=== PATIENT | male | born 1985 | race Hispanic/Latino ===

== ENCOUNTER 2017-04-29 10:22 | Emergency (ER) | payer OTHER ==
[2017-04-29 11:09] VITALS: RESP 16; TEMP 97; BMI 30.2
--- NOTE | 2017-04-29 11:18 | ED PDOC ---
Arrival/HPI - General Chief Complaint: Abdominal Pain Time Seen by Provider: 04/29/17 11:11 Historian: Patient - History of Present Illness Narrative History of Present Illness (Text): 04/29/17 11:15 31 year old male who denies significant past medical history presents to the emergency department with five episodes of non-bloody diarrhea and some lower abdominal cramping since yesterday. Patient states he gets similar symptoms about once a year. He states he was at a picnic yesterday and someone else had the same symptoms. He reports he took Tums and Maalox with mild improvement. Denies vomiting or fever. PMD: Dr. Linares Time/Duration: 24 hours Symptom Onset: Sudden Symptom Course: Unchanged Associated Symptoms (Text): None Past Medical History - Provider Review Nursing Documentation Reviewed: Yes - Past History Past History: Non-Contributing - Infectious Disease Hx of Infectious Diseases: None - Tetanus Immunization Tetanus Immunization: Up to Date - Past Medical History Past Medical History: No Previous - Pulmonary Hx Asthma: No - Hematological/Oncological Hx Anemia: No Hx Cancer: No - Musculoskeletal/Rheumatological Hx Falls: No - Psychiatric Hx Psychophysiologic Disorder: No Hx Depression: No Hx Emotional Abuse: No Hx Physical Abuse: No Hx Substance Use: No - Past Surgical History Past Surgical History: No Previous - Surgical History Hx Orthopedic Surgery: Yes (R 4TH FINGER) - Anesthesia Hx Anesthesia: No Hx Anesthesia Reactions: No Hx Malignant Hyperthermia: No - Suicidal Assessment Feels Threatened In Home Enviroment: Yes Family/Social History - Physician Review Nursing Documentation Reviewed: Yes Family/Social History: Unknown Family HX Smoking Status: Never Smoked Hx Alcohol Use: No Hx Substance Use: No Hx Substance Use Treatment: No Allergies/Home Meds Allergies/Adverse Reactions: Allergies famotidine [From Pepcid] Allergy (Verified 12/19/16 13:12) ANAPHYLAXIS Penicillins Allergy (Verified 12/19/16 13:12) ANAPHYLAXIS Home Medications: Home Meds Medication Instructions Recorded Confirmed No Known Home Med 04/29/17 04/29/17 Review of Systems - Physician Review All systems were reviewed & negative as marked: Yes - Review of Systems Constitutional: absent: Fevers Gastrointestinal: Abdominal Pain (Lower, cramping), Diarrhea. absent: Vomiting Physical Exam Vital Signs Reviewed: Yes Vital Signs Temp Pulse Resp BP Pulse Ox 04/29/17 11:21 86 16 128/75 99 04/29/17 11:07 97.0 F L 88 16 129/77 98 Temperature: Afebrile Blood Pressure: Normal Pulse: Regular Respiratory Rate: Normal Appearance: Positive for: Well-Appearing, Non-Toxic Pain Distress: None Mental Status: Positive for: Alert and Oriented X 3 - Systems Exam Head: Present: Atraumatic, Normocephalic Pupils: Present: PERRL Extroacular Muscles: Present: EOMI Conjunctiva: Present: Normal Mouth: Present: Moist Mucous Membranes Neck: Present: Normal Range of Motion Respiratory/Chest: Present: Clear to Auscultation, Good Air Exchange. No: Respiratory Distress, Accessory Muscle Use Cardiovascular: Present: Regular Rate and Rhythm, Normal S1, S2. No: Murmurs Abdomen: Present: Normal Bowel Sounds. No: Tenderness, Distention, Peritoneal Signs Back: Present: Normal Inspection Upper Extremity: Present: Normal Inspection. No: Cyanosis, Edema Lower Extremity: Present: Normal Inspection. No: Edema Neurological: Present: GCS=15, CN II-XII Intact, Speech Normal Skin: Present: Warm, Dry, Normal Color. No: Rashes Psychiatric: Present: Alert, Oriented x 3, Normal Insight, Normal Concentration Medical Decision Making ED Course and Treatment: Impression: 31 year old male who denies significant past medical history presents to the emergency department with five episodes of non-bloody diarrhea and some lower abdominal cramping since yesterday. Differential Diagnosis included but are not limited to: Gastroeneterisis Plan: -- Discharge Prior Visits: Notes and results from previous visits were reviewed. Patient last seen in the ED on 12/19/16 for vomiting and discharged home. Progress Notes: 04/29/17 11:22 Patient's abdomen is non-tender. Vitals stable. Instructed patient to stay well hydrated. Will discharge patient to follow up with PMD or return if symptoms worsen. Patient agrees with plan. - Scribe Statement The provider has reviewed the documentation as recorded by the Bud Jung Provider Scribe Attestation: All medical record entries made by the Scribyenifer were at my direction and personally dictated by me. I have reviewed the chart and agree that the record accurately reflects my personal performance of the history, physical exam, medical decision making, and the department course for this patient. I have also personally directed, reviewed, and agree with the discharge instructions and disposition. Disposition/Present on Arrival - Present on Arrival Any Indicators Present on Arrival: No History of DVT/PE: No History of Uncontrolled Diabetes: No Urinary Catheter: No History of Decub. Ulcer: No History Surgical Site Infection Following: None - Disposition Have Diagnosis and Disposition been Completed?: Yes Diagnosis: Abdominal pain, Gastroenteritis Disposition: HOME/ ROUTINE Disposition Time: 11:22 Patient Plan: Discharge Condition: STABLE Discharge Instructions (ExitCare): Gastroenteritis (ED) Additional Instructions: Mr Joseph, thank you for letting us take care of you today. Your provider was Dr. Rivera. You were treated for Gastroenteritis, Abdominal Pain. The emergency medical care you received today was directed at your acute symptoms. If you were prescribed any medication, please fill it and take as directed. It may take several days for your symptoms to resolve. Return to the Emergency Department if your symptoms worsen, do not improve, or if you have any other problems. Please contact your doctor or call one of the physicians/clinics you have been referred to that are listed on the Patient Visit Information form that is included in your discharge packet. Bring any paperwork you were given at discharge with you along with any medications you are taking to your follow up visit. Our treatment cannot replace ongoing medical care by a primary care provider (PCP) outside of the emergency department. Thank you for allowing the [facility] team to be part of your care today. If you had an X-Ray or CT scan: A Radiologist will review the ED reading if any change in treatment is needed we will contact you. If you had a blood, urine, or wound culture: It will take several days for the results, if any change in treatment is needed we will contact you. If you had an STI test: It will take 48 hours for the results. Please call after 1 week if you have not heard back. [facility] Employee Regarding your Work Related Injury, you are instructed to do all of the following by next day: 1. Notify [facility] Employee Health Department of the sustained injury and arrange for any follow-up appointments if needed during the next business day. If the office is closed or no answer is received, please leave a detailed voice message. Message should include your full name, department and research & analytics manager, date of injury, date of ED visit if applicable. Employee Health can be reached at [phone]. 2. If there is time lost, notify [facility] Human Resources Department of the work related injury the next business day at [phone]. Referrals: Sunny Linares MD [Primary Care Provider] - Follow up with primary Forms: [facility] (Latvian), WORK NOTE
[2017-04-29 11:22] VITALS: BP 128/75; PULSE 86; O2SAT 99
== END 2017-04-29 11:22 | disposition home or self-care (01) ==
LOC: ED 10:22
DX: K52.9 Noninfective gastroenteritis and colitis, unspecified (principal)

== ENCOUNTER 2018-04-14 09:10 | Emergency (ER) | payer OTHER ==
[2018-04-14 09:56] VITALS: BMI 31.0
[2018-04-14 10:04] VITALS: RESP 18; TEMP 98.4
--- NOTE | 2018-04-14 10:53 | ED PDOC ---
Arrival/HPI - General Chief Complaint: Upper Extremity Problem/Injury Time Seen by Provider: 04/14/18 10:04 Historian: Patient - History of Present Illness Narrative History of Present Illness (Text): 04/14/18 10:41 32yr old male presents today with right shoulder pain s/p injury at work. pt states that he was removing a monitor from the wall and started to feel a pain in the right shoulder. 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 no medications have been taken for pain. pt states the pain is worse with movement/abduction of the shoulder. pt states the pain it localized over the lateral aspect of the right shoulder. pt denies numbness, weakness, tingling in the extremity. no dizziness or weakness. no other complaints. Past Medical History - Provider Review Nursing Documentation Reviewed: Yes - Travel History Have you recently traveled outside [place] w/in the past 3 mons?: No - Past History Past History: Non-Contributing - Infectious Disease Hx of Infectious Diseases: None - Tetanus Immunization Tetanus Immunization: Up to Date - Past Medical History Past Medical History: No Previous - Cardiac Hx Cardiac Disorders: No - Pulmonary Hx Respiratory Disorders: No Hx Asthma: No - Neurological Hx Neurological Disorder: No - HEENT Hx HEENT Disorder: No - Renal Hx Renal Disorder: No - Endocrine/Metabolic Hx Endocrine Disorders: No - Hematological/Oncological Hx Blood Disorders: No Hx Anemia: No Hx Cancer: No - Integumentary Hx Dermatological Disorder: No - Musculoskeletal/Rheumatological Hx Musculoskeletal Disorders: No Hx Falls: No - Gastrointestinal Hx Gastrointestinal Disorders: Yes Hx Diarrhea: Yes - Genitourinary/Gynecological Hx Genitourinary Disorders: No - Psychiatric Hx Psychophysiologic Disorder: No Hx Depression: No Hx Emotional Abuse: No Hx Physical Abuse: No Hx Substance Use: No - Past Surgical History Past Surgical History: No Previous - Surgical History Hx Orthopedic Surgery: Yes (right 4TH FINGER) - Anesthesia Hx Anesthesia: No Hx Anesthesia Reactions: No Hx Malignant Hyperthermia: No - Suicidal Assessment Feels Threatened In Home Enviroment: Yes Family/Social History - Physician Review Nursing Documentation Reviewed: Yes Family/Social History: Unknown Family HX Smoking Status: Never Smoked Hx Alcohol Use: No Hx Substance Use: No Hx Substance Use Treatment: No Allergies/Home Meds Allergies/Adverse Reactions: Allergies famotidine [From Pepcid] Allergy (Verified 12/19/16 13:12) ANAPHYLAXIS Penicillins Allergy (Verified 12/19/16 13:12) ANAPHYLAXIS Review of Systems - Review of Systems Constitutional: absent: Fatigue, Fevers Respiratory: absent: SOB, Cough Cardiovascular: absent: Chest Pain, Palpitations Gastrointestinal: absent: Abdominal Pain, Nausea, Vomiting Genitourinary Male: absent: Dysuria, Frequency, Hematuria Musculoskeletal: Arthralgias (right shoulder pain). absent: Back Pain, Neck Pain Skin: absent: Rash, Pruritis Psychiatric: absent: Anxiety, Depression Physical Exam Vital Signs Reviewed: Yes Vital Signs Temp Pulse Resp BP Pulse Ox 04/14/18 09:45 98.4 F 89 18 138/94 H 98 Temperature: Afebrile Blood Pressure: Normal Pulse: Regular Respiratory Rate: Normal Appearance: Positive for: Well-Appearing, Non-Toxic, Comfortable Pain Distress: None Mental Status: Positive for: Alert and Oriented X 3 - Systems Exam Head: Present: Atraumatic Mouth: Present: Moist Mucous Membranes Neck: Present: Normal Range of Motion Respiratory/Chest: Present: Clear to Auscultation, Good Air Exchange. No: Respiratory Distress, Accessory Muscle Use Cardiovascular: Present: Regular Rate and Rhythm, Normal S1, S2. No: Murmurs Back: Present: Normal Inspection Upper Extremity: Present: NORMAL PULSES, Tenderness (right shoulder; + ttp over lateral aspect of shoulder;limited abduction of shoulder. no edema, no erythema , no ecchymosis. ), Neurovascularly Intact, Capillary Refill < 2s. No: Normal ROM, Swelling, Erythema Neurological: Present: GCS=15 Skin: Present: Warm, Dry Psychiatric: Present: Alert, Oriented x 3 Medical Decision Making ED Course and Treatment: 04/14/18 11:17Patient nontoxic well-appearing in no distress with stable vital signs X-rays of the right shoulder; no fracture toradol IM Patient placed in Sling. I discussed all results with patient advised to followup with employee health tomorrow; f/u with orthopedist for the next 2 days. Return if symptoms worsen persist or new symptoms develop i advised the patient that although the xrays show no fracture; there is still a possibility for ligamentous or tendon injury the patient must see the orthopedist for further evaluation. Patient verbalizes understanding of discharge instructions and need for immediate followup. all aspects of this case were discussed the attending of record. Impression: shoulder pain Motrin every 6 hours as needed for pain Flexeril; 1 tablet every 8 hours as needed for muscle spasms; may cause drowsiness. Rest, ice, compression, elevation Follow up with Employee health tomorrow Return if any other concerning symptoms develop - Lab Interpretations Narrative Lab Interpretation (Text): 04/14/18 10:55 Patient nontoxic well-appearing in no distress with stable vital signs X-rays of the right shoulder; FINDINGS: BONES: Normal. No fracture. JOINTS: Normal. Glenohumeral and acromioclavicular joints preserved. No osteoarthritis. SOFT TISSUES: Normal. OTHER FINDINGS: None. IMPRESSION: Normal radiographs of the right shoulder. toradol IM. Patient placed in sling I discussed all results with patient advised to followup with the orthopedist for the next 2 days. Return if symptoms worsen persist or new symptoms develop. i advised the patient that although the xrays show no fracture; there is still a possibility for ligamentous or tendon injury the patient must see the orthopedist for further evaluation. Patient verbalizes understanding of discharge instructions and need for immediate followup. all aspects of this case were discussed the attending of record. Impression: shoulder pain Motrin every 6 hours as needed for pain Flexeril; 1 tablet every 8 hours as needed for muscle spasms; may cause drowsiness. Rest, ice, compression, elevation Follow up with Employee health today Return if any other concerning symptoms develop - RAD Interpretation Radiology Orders: 04/14/18 10:04 SHOULDER RIGHT [RAD] Stat Disposition/Present on Arrival - Present on Arrival Any Indicators Present on Arrival: No History of DVT/PE: No History of Uncontrolled Diabetes: No Urinary Catheter: No History of Decub. Ulcer: No History Surgical Site Infection Following: None - Disposition Have Diagnosis and Disposition been Completed?: Yes Diagnosis: Shoulder pain Disposition: HOME/ ROUTINE Disposition Time: 11:14 Patient Plan: Discharge Condition: GOOD Discharge Instructions (ExitCare): Shoulder Pain (DC) Additional Instructions: [facility] Employee Regarding your Work Related Injury, you are instructed to do all of the following by next day: 1. Notify [facility] Employee Health Department of the sustained injury and arrange for any follow-up appointments if needed during the next business day. If the office is closed or no answer is received, please leave a detailed voice message. Message should include your full name, department and manager outreach, date of injury, date of ED visit if applicable. Employee Health can be reached at [phone]. 2. If there is time lost, notify [facility] Human Resources Department of the work related injury the next day at [phone]. Motrin every 6 hours as needed for pain Flexeril; 1 tablet every 8 hours as needed for muscle spasms; may cause drowsiness. Rest, ice, compression, elevation Follow up with Employee health tomorrow. Return if any other concerning symptoms develop Prescriptions: Cyclobenzaprine [Cyclobenzaprine HCl] 10 mg PO Q8 #8 tab Ibuprofen [Motrin] 600 mg PO Q6H PRN #20 tab PRN Reason: pain/fever reduction Referrals: Sesar Garcia DO [Staff Provider] - Follow up with primary Wicho Morton MD [Staff Provider] - Follow up with primary Forms: [facility] (Occitan), WORK NOTE
--- NOTE | 2018-04-14 10:59 | RAD ---
PROCEDURE: Radiographs of the Right Shoulder HISTORY: shoulder pain s/p injury COMPARISON: No prior. FINDINGS: BONES: Normal. No fracture. JOINTS: Normal. Glenohumeral and acromioclavicular joints preserved. No osteoarthritis. SOFT TISSUES: Normal. OTHER FINDINGS: None. IMPRESSION: Normal radiographs of the right shoulder.
[2018-04-14 11:33] VITALS: BP 135/90; PULSE 88; O2SAT 99
== END 2018-04-14 11:33 | disposition home or self-care (01) ==
LOC: ED 09:10
DX: M25.511 Pain in right shoulder (principal)

== ENCOUNTER 2018-06-07 19:54 | Emergency (ER) | payer OTHER ==
[2018-06-07 19:55] VITALS: BMI 31.0
[2018-06-07 20:21] VITALS: RESP 18; TEMP 98.5
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
[2018-06-07 21:56] VITALS: BP 132/72; PULSE 72; O2SAT 99
--- NOTE | 2018-06-08 09:47 | RAD ---
Date of service: 06/07/2018 PROCEDURE: Cervical Spine Radiographs. HISTORY: Pain. COMPARISON: None. FINDINGS: BONES: Alignment maintained. No fracture. Dens Intact. DISC SPACES: Normal. SOFT TISSUES: Normal. No prevertebral soft tissue swelling. OTHER FINDINGS: None. IMPRESSION: Normal cervical spine radiographs
== END 2018-06-07 21:30 | disposition home or self-care (01) ==
LOC: ED 19:54
DX: S10.93XA Contusion of unspecified part of neck, initial encounter (principal); W50.1XXA Accidental kick by another person, initial encounter; Y92.239 Unspecified place in hospital as the place of occurrence of the external cause; Y99.0 Civilian activity done for income or pay

== ENCOUNTER 2018-06-28 18:37 | Emergency (ER) | payer SELFPAY ==
[2018-06-28 18:37] VITALS: BMI 31.0
[2018-06-28 18:51] VITALS: BP 126/73; PULSE 90; RESP 18; TEMP 98.8
--- NOTE | 2018-06-28 19:52 | ED PDOC ---
Arrival/HPI - General Chief Complaint: Upper Extremity Problem/Injury Time Seen by Provider: 06/28/18 18:55 Historian: Patient - History of Present Illness Narrative History of Present Illness (Text): 06/28/18 19:52 32-year-old male presents today with right fourth finger pain. Patient states he had history of prior surgery on the right fourth finger today he woke up with pain and stiffness in the finger. He denies fevers or chills. He denies any recent trauma or injury. Patient states he feels as if the finger is swollen and he has pain with flexion of the finger. He denies numbness weakness or tingling in the extremities. He denies taking any medications for pain at home. No other complaints Past Medical History - Provider Review Nursing Documentation Reviewed: Yes - Travel History Have you recently traveled outside [place] w/in the past 3 mons?: No - Past History Past History: Non-Contributing - Infectious Disease Hx of Infectious Diseases: None - Tetanus Immunization Tetanus Immunization: Up to Date - Past Medical History Past Medical History: No Previous - Cardiac Hx Cardiac Disorders: No - Pulmonary Hx Respiratory Disorders: No - Neurological Hx Neurological Disorder: No - HEENT Hx HEENT Disorder: No - Renal Hx Renal Disorder: No - Endocrine/Metabolic Hx Endocrine Disorders: No - Hematological/Oncological Hx Blood Disorders: No - Integumentary Hx Dermatological Disorder: No - Musculoskeletal/Rheumatological Hx Musculoskeletal Disorders: No - Gastrointestinal Hx Gastrointestinal Disorders: Yes Hx Diarrhea: Yes - Genitourinary/Gynecological Hx Genitourinary Disorders: No - Psychiatric Hx Psychophysiologic Disorder: No Hx Substance Use: No - Past Surgical History Past Surgical History: No Previous - Surgical History Hx Orthopedic Surgery: Yes (right 4TH FINGER) - Anesthesia Hx Anesthesia: No Hx Anesthesia Reactions: No Hx Malignant Hyperthermia: No - Suicidal Assessment Feels Threatened In Home Enviroment: Yes Family/Social History - Physician Review Nursing Documentation Reviewed: Yes Family/Social History: Unknown Family HX Smoking Status: Never Smoked Hx Alcohol Use: No Hx Substance Use: No Hx Substance Use Treatment: No Allergies/Home Meds Allergies/Adverse Reactions: Allergies famotidine [From Pepcid] Allergy (Verified 06/28/18 18:51) ANAPHYLAXIS Penicillins Allergy (Verified 06/28/18 18:51) ANAPHYLAXIS Review of Systems - Review of Systems Constitutional: absent: Fatigue, Fevers Respiratory: absent: SOB, Cough Cardiovascular: absent: Chest Pain, Palpitations Gastrointestinal: absent: Abdominal Pain, Nausea, Vomiting Musculoskeletal: Arthralgias. absent: Back Pain, Neck Pain Skin: absent: Rash, Pruritis Neurological: absent: Headache, Dizziness Psychiatric: absent: Anxiety, Depression Physical Exam Vital Signs Reviewed: Yes Vital Signs Temp Pulse Resp BP Pulse Ox 06/28/18 18:44 98.8 F 90 18 126/73 98 Temperature: Afebrile Blood Pressure: Normal Pulse: Regular Respiratory Rate: Normal Appearance: Positive for: Well-Appearing, Non-Toxic, Comfortable Pain Distress: None Mental Status: Positive for: Alert and Oriented X 3 - Systems Exam Head: Present: Atraumatic Respiratory/Chest: Present: Clear to Auscultation Cardiovascular: Present: Regular Rate and Rhythm Upper Extremity: Present: NORMAL PULSES, Tenderness (right hand; 4th finger; + minimal edema, no erythema; limited flexion of finger at PIP and MCP; sensation and distal pulses intact; cap refill <2. ), Swelling, Neurovascularly Intact, Capillary Refill < 2s. No: Normal ROM, Erythema, Deformity Neurological: Present: GCS=15, Speech Normal Skin: Present: Warm, Dry, Normal Color Psychiatric: Present: Alert, Oriented x 3 Medical Decision Making ED Course and Treatment: 06/28/18 19:56 Patient nontoxic well-appearing in no distress with stable vital signs X-rays of the right 4th finger; no fracture toradol IM I discussed all results with patient advised to followup with the orthopedist/ hand specialist within the next 2 days. Return if symptoms worsen persist or new symptoms develop Patient verbalizes understanding of discharge instructions and need for immediate followup. all aspects of this case were discussed the attending of record. Impression: Finger pain Motrin every 6 hours as needed for pain Rest, ice, compression, elevation Followup with the orthopedist within the next 2 days Followup with primary care physician within the next 2 days Return if any other concerning symptoms develop; high fevers, redness, worsening swelling, numbness, tingling or if any other concerning symptoms develop. - RAD Interpretation Radiology Orders: 06/28/18 18:56 HAND RIGHT 4TH DIGIT (FINGER) [RAD] Stat - Medication Orders Current Medication Orders: Discontinued Medications Ketorolac Tromethamine (Toradol) 60 mg IM STAT STA Stop: 06/28/18 18:56 Last Admin: 06/28/18 19:42 Dose: 60 mg MAR Pain Assessment Document 06/28/18 19:42 SS (Rec: 06/28/18 19:42 SS [id number]) Pain Reassessment Is this a pain reassessment? No Sleep Is patient sleeping during reassessment? No Location Left, Right or Bilateral Right Pain Location Body Site Hand IM Administration Charges Document 06/28/18 19:42 SS (Rec: 06/28/18 19:42 SS [id number]) Injection Site MAR Injection Site Right Deltoid Charges for Administration # of IM Administrations 1 Disposition/Present on Arrival - Present on Arrival Any Indicators Present on Arrival: No History of DVT/PE: No History of Uncontrolled Diabetes: No Urinary Catheter: No History of Decub. Ulcer: No History Surgical Site Infection Following: None - Disposition Have Diagnosis and Disposition been Completed?: Yes Diagnosis: Finger pain Disposition: HOME/ ROUTINE Disposition Time: 19:58 Patient Plan: Discharge Patient Problems: Current Active Problems Problem Status Onset Finger pain Acute Condition: GOOD Additional Instructions: Motrin every 6 hours as needed for pain Rest, ice, compression, elevation Followup with the orthopedist within the next 2 days Followup with primary care physician within the next 2 days Return if any other concerning symptoms develop; high fevers, redness, worsening swelling, numbness, tingling or if any other concerning symptoms develop. Prescriptions: Ibuprofen [Motrin] 600 mg PO Q6H PRN #20 tab PRN Reason: pain/fever reduction Referrals: Israel Presley MD [Staff Provider] - Follow up with primary [facility] [place] [Outside] - Follow up with primary Forms: [employer] (Maltese), WORK NOTE
[2018-06-29 02:07] VITALS: O2SAT 99
--- NOTE | 2018-06-29 13:17 | RAD ---
Date of service: 06/28/2018 PROCEDURE: Right ring finger radiographs. HISTORY: right 4th finger pain COMPARISON: None. TECHNIQUE: AP radiograph of the right hand, as well as spot oblique and lateral images of ring finger were obtained. FINDINGS: RIGHT RING FINGER: Unremarkable right ring finger, without acute displaced fracture identified. Remainder of the right hand (as seen on the AP view) grossly unremarkable. JOINTS: No evidence of dislocation. SOFT TISSUES: Unremarkable. No evidence of radiopaque foreign body. OTHER FINDINGS: None. IMPRESSION: Unremarkable right ring finger radiographs.
== END 2018-06-29 02:06 | disposition home or self-care (01) ==
LOC: ED 18:37
DX: M79.644 Pain in right finger(s) (principal)
CPT/HCPCS: 73140; 96372; 99283; J1885

== ENCOUNTER 2018-11-30 12:46 | Emergency (ER) | payer OTHER ==
[2018-11-30 12:46] VITALS: BMI 31.0
[2018-11-30 13:00] VITALS: BP 145/89; PULSE 82; RESP 18; TEMP 99.9; O2SAT 98
--- NOTE | 2018-11-30 13:25 | ED PDOC ---
Arrival/HPI - General Chief Complaint: Flu-like Symptoms Time Seen by Provider: 11/30/18 12:49 Historian: Patient - History of Present Illness Narrative History of Present Illness (Text): 11/30/18 13:06 33 year old male, whose past medical history includes IBS, who presents for evaluation of intermittent flu-like symptoms for the past week. Patient reports he is unsure if he has the flu, noting his symptoms are different from those caused by his IBS. Patient notes frequent diarrhea resulting from anything he eats or drinks, including water. Patient notes feeling weak due to diarrhea. Patient reports his temperature was measured at 99.9 degrees prior to evaluation. Patient states he has an appointment with Dr. Andrews on 12/09/2018, but it is a long time from now so he wanted to be evaluated incase he has the flu. Patient denies any chest pain, shortness of breath, abdominal pain, vomiting, back pain, neck pain, urinary symptoms, headache, dizziness, or any other complaint. PMD: Dr. Andrews Time/Duration: 1 week (Pt notes symptoms for past week ) Symptom Onset: Sudden Symptom Course: Unchanged ( ) Activities at Onset: Light Past Medical History - Provider Review Nursing Documentation Reviewed: Yes - Past History Past History: Non-Contributing - Infectious Disease Hx of Infectious Diseases: None - Tetanus Immunization Tetanus Immunization: Up to Date - Past Medical History Past Medical History: No Previous - Cardiac Hx Cardiac Disorders: No - Pulmonary Hx Respiratory Disorders: No - Neurological Hx Neurological Disorder: No - HEENT Hx HEENT Disorder: No - Renal Hx Renal Disorder: No - Endocrine/Metabolic Hx Endocrine Disorders: No - Hematological/Oncological Hx Blood Disorders: No - Integumentary Hx Dermatological Disorder: No - Musculoskeletal/Rheumatological Hx Musculoskeletal Disorders: No - Gastrointestinal Hx Gastrointestinal Disorders: Yes Hx Diarrhea: Yes - Genitourinary/Gynecological Hx Genitourinary Disorders: No - Psychiatric Hx Psychophysiologic Disorder: No Hx Substance Use: No - Past Surgical History Past Surgical History: No Previous - Surgical History Hx Orthopedic Surgery: Yes (right 4TH FINGER) - Anesthesia Hx Anesthesia: No Hx Anesthesia Reactions: No Hx Malignant Hyperthermia: No - Suicidal Assessment Feels Threatened In Home Enviroment: Yes Family/Social History - Physician Review Nursing Documentation Reviewed: Yes Family/Social History: No Known Family HX Smoking Status: Never Smoked Hx Alcohol Use: No Hx Substance Use: No Hx Substance Use Treatment: No Allergies/Home Meds Allergies/Adverse Reactions: Allergies famotidine [From Pepcid] Allergy (Verified 06/28/18 18:51) ANAPHYLAXIS Penicillins Allergy (Verified 06/28/18 18:51) ANAPHYLAXIS Review of Systems - Physician Review All systems were reviewed & negative as marked: Yes - Review of Systems Constitutional: Fevers (Pt notes temperature at 99.9 degrees prior to evaluation). absent: Normal Respiratory: Normal. absent: SOB Cardiovascular: Normal. absent: Chest Pain Gastrointestinal: Diarrhea (Pt states anything he eats or drinks comes right out, including water ), Appetite Changes. absent: Normal, Abdominal Pain, Vomiting Genitourinary Male: Normal. absent: Urinary Output Changes Musculoskeletal: Normal. absent: Back Pain, Neck Pain Neurological: Normal. absent: Headache, Dizziness Physical Exam - Physical Exam Narrative Physical Exam (Text): Constitutional: No acute distress. Head: Normocephalic. Atraumatic. Eyes: PERRL. ENT: Moist mucous membranes. Neck: Supple. Cardiovascular: Regular rate. Chest: No tenderness. Respiratory: Clear to auscultation bilaterally. GI: Soft. Nontender. Nondistended. Back: No CVA tenderness. Musculoskeletal: No tenderness or swelling of extremities. Skin: No rash. Neurologic: Alert, no focal deficit. Vital Signs Reviewed: Yes Vital Signs Temp Pulse Resp BP Pulse Ox 11/30/18 12:59 99.9 F H 82 18 145/89 98 Temperature: Febrile Blood Pressure: Normal Pulse: Regular Respiratory Rate: Normal Appearance: Positive for: Well-Appearing, Non-Toxic Pain Distress: None Mental Status: Positive for: Alert and Oriented X 3 Medical Decision Making ED Course and Treatment: 11/30/18 13:06 Impression: 33 year old male who presents to the Emergency department for intermittent flu- like symptoms for the past week. Differential Diagnosis included but are not limited to: Plan: -- Reassess and disposition Prior Visits: Notes and results from previous visits were reviewed. Patient was last seen in the emergency department on 06/28/18 with right fourth finger pain. Patient was discharged home in good condition and prescribed Motrin. Progress Notes: Patient appears well and normal physical exam. Offered labs but patient declined. - Scribe Statement The provider has reviewed the documentation as recorded by the Scribe Dianne Lizeth All medical record entries made by the Scribe were at my direction and personally dictated by me. I have reviewed the chart and agree that the record accurately reflects my personal performance of the history, physical exam, medical decision making, and the department course for this patient. I have also personally directed, reviewed, and agree with the discharge instructions and disposition. Disposition/Present on Arrival - Present on Arrival Any Indicators Present on Arrival: No History of DVT/PE: No History of Uncontrolled Diabetes: No Urinary Catheter: No History of Decub. Ulcer: No History Surgical Site Infection Following: None - Disposition Have Diagnosis and Disposition been Completed?: Yes Diagnosis: Loose stools Disposition: HOME/ ROUTINE Disposition Time: 13:10 Condition: STABLE Discharge Instructions (ExitCare): Viral Syndrome (DC) Referrals: Jeovany Andrews MD [Staff Provider] - Follow up with primary Forms: [employer] [facility] (Welsh), WORK NOTE
== END 2018-11-30 13:10 | disposition home or self-care (01) ==
LOC: ED 12:46
DX: R19.5 Other fecal abnormalities (principal)

== ENCOUNTER 2019-01-02 23:44 | Emergency (ER) | payer OTHER ==
[2019-01-02 23:44] VITALS: BMI 31.0
--- NOTE | 2019-01-03 00:09 | ED PDOC ---
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 Patient states he was sitting at a desk when he bumped his knee on some equipment. Patient states he felt a shooting pain through the knee and down to his foot. Patient states he still feels shocks throughout his leg. Patient denies any fevers, chills, headache, dizziness, chest pain, shortness of breath, cough, abdominal pain, nausea, vomiting, diarrhea, back pain, neck pain, or any other complaint. Time/Duration: Prior to Arrival Symptom Onset: Sudden Symptom Course: Unchanged Quality: Throbbing Activities at Onset: Light Context: Work Past Medical History - Provider Review Nursing Documentation Reviewed: Yes - Past History Past History: Non-Contributing - Infectious Disease Hx of Infectious Diseases: None - Tetanus Immunization Tetanus Immunization: Up to Date - Past Medical History Past Medical History: No Previous - Cardiac Hx Cardiac Disorders: No - Pulmonary Hx Respiratory Disorders: No - Neurological Hx Neurological Disorder: No - HEENT Hx HEENT Disorder: No - Renal Hx Renal Disorder: No - Endocrine/Metabolic Hx Endocrine Disorders: No - Hematological/Oncological Hx Blood Disorders: No - Integumentary Hx Dermatological Disorder: No - Musculoskeletal/Rheumatological Hx Musculoskeletal Disorders: No - Gastrointestinal Hx Gastrointestinal Disorders: Yes Hx Diarrhea: Yes - Genitourinary/Gynecological Hx Genitourinary Disorders: No - Psychiatric Hx Psychophysiologic Disorder: No Hx Substance Use: No - Past Surgical History Past Surgical History: No Previous - Surgical History Hx Orthopedic Surgery: Yes (right 4TH FINGER) - Anesthesia Hx Anesthesia: No Hx Anesthesia Reactions: No Hx Malignant Hyperthermia: No - Suicidal Assessment Feels Threatened In Home Enviroment: Yes Family/Social History - Physician Review Nursing Documentation Reviewed: Yes Family/Social History: No Known Family HX Smoking Status: Never Smoked Hx Alcohol Use: No Hx Substance Use: No Hx Substance Use Treatment: No Allergies/Home Meds Allergies/Adverse Reactions: Allergies famotidine [From Pepcid] Allergy (Verified 01/02/19 23:49) ANAPHYLAXIS Penicillins Allergy (Verified 01/02/19 23:49) ANAPHYLAXIS Home Medications: Home Meds Medication Instructions Recorded Confirmed No Known Home Med 01/02/19 01/02/19 Review of Systems - Physician Review All systems were reviewed & negative as marked: Yes - Review of Systems Constitutional: absent: Fevers, Night Sweats Respiratory: absent: SOB, Cough Cardiovascular: absent: Chest Pain Gastrointestinal: absent: Abdominal Pain, Diarrhea, Nausea, Vomiting Musculoskeletal: Arthralgias (Shooting pain from left knee to left lower leg). absent: Back Pain, Neck Pain Neurological: absent: Headache, Dizziness Physical Exam - Systems Exam Head: Present: Atraumatic, Normocephalic Pupils: Present: PERRL Extroacular Muscles: Present: EOMI Conjunctiva: Present: Normal Mouth: Present: Moist Mucous Membranes Neck: Present: Normal Range of Motion Respiratory/Chest: Present: Clear to Auscultation, Good Air Exchange. No: Respiratory Distress, Accessory Muscle Use Cardiovascular: Present: Regular Rate and Rhythm, Normal S1, S2. No: Murmurs Abdomen: No: Tenderness, Distention, Peritoneal Signs Back: Present: Normal Inspection Upper Extremity: Present: Normal Inspection. No: Cyanosis, Edema Lower Extremity: Present: Normal Inspection, Tenderness (to the medial portion of left knee), Other (popliteal pulses intact; no bruising or echymosis). No: Edema Neurological: Present: GCS=15, CN II-XII Intact, Speech Normal Skin: Present: Warm, Dry, Normal Color. No: Rashes Psychiatric: Present: Alert, Oriented x 3, Normal Insight, Normal Concentration Medical Decision Making ED Course and Treatment: 01/03/19 00:12 Impression: 33 year old male presents with left knee pain Plan: -- Motrin -- Left Knee X-ray -- Reassess and disposition Prior Visits: Notes and results from previous visits were reviewed. Progress Notes: 01/03/19 00:37 XR of knee reviewed with no evidence of acute fracture. Shared decision making with patient regarding the cause of pain discussed relegating it to a nerve pain. He is advised to treat with OTC medications and to avoid strenous activity. He demonstrates understanding and will follow up. He is stable for discharge. - RAD Interpretation Radiology Orders: 01/02/19 23:56 KNEE LEFT 2 VIEWS (AP & LAT) [RAD] Stat - Medication Orders Current Medication Orders: Discontinued Medications Ibuprofen (Motrin Tab) 600 mg PO STAT STA Stop: 01/02/19 23:59 - Scribe Statement The provider has reviewed the documentation as recorded by the Scribe Lee Medrano Provider Scribe Attestation: All medical record entries made by the Scribe were at my direction and personally dictated by me. I have reviewed the chart and agree that the record accurately reflects my personal performance of the history, physical exam, medical decision making, and the department course for this patient. I have also personally directed, reviewed, and agree with the discharge instructions and disposition. Disposition/Present on Arrival - Present on Arrival Any Indicators Present on Arrival: No History of DVT/PE: No History of Uncontrolled Diabetes: No Urinary Catheter: No History of Decub. Ulcer: No History Surgical Site Infection Following: None - Disposition Have Diagnosis and Disposition been Completed?: Yes Diagnosis: Knee pain, left Disposition Time: 00:39 Patient Plan: Discharge Condition: STABLE Discharge Instructions (ExitCare): Patellofemoral Pain (DC), Knee Pain (DC) Print Language: ICELANDIC Additional Instructions: All medical record entries made by the Scribe were at my direction and personally dictated by me. I have reviewed the chart and agree that the record accurately reflects my personal performance of the history, physical exam, medical decision making, and the department course for this patient. I have also personally directed, reviewed, and agree with the discharge instructions and disposition. Referrals: Issac Heath DO [Staff Provider] - Follow up with primary Forms: [employer] (Guinean)
--- NOTE | 2019-01-03 08:46 | RAD ---
Date of service: 01/03/2019 PROCEDURE: Left Knee Radiographs. HISTORY: Pain. COMPARISON: None. FINDINGS: BONES: Normal. No fracture. JOINTS: Normal. No osteoarthritis. JOINT EFFUSION: None. OTHER FINDINGS: None. IMPRESSION: Normal radiographs of the left knee.
== END 2019-01-03 00:40 | disposition home or self-care (01) ==
LOC: ED 23:44
DX: M25.562 Pain in left knee (principal)